=== PATIENT | female | born 1945 | race Caucasian/White ===

== ENCOUNTER → 2016-10-20 | Outpatient (CLI) | payer BC ==
[~2016-10-20] MED LIST: ATEN-60 PO; ATEN50TA PO; METF-312 PO; NAPR-607 PO; TRIA75TA66 PO; WARF5TAB71 PO
[2016-10-20 12:09] LABS: Basophils # (auto) 0 uL; DEFINITIVE VIEW TRANSMISSION; Eosinophils # (auto) 0.1 uL; Eosinophils % (auto) 0.6 % (0.0-7.0); Hematocrit 54.3 % (36.0-46.0); Hemoglobin 17.4 g/dL (12.2-16.2); Lymphocytes # (auto) 1.3 uL; Lymphocytes % (auto) 11.7 % (10.0-50.0); Mean Corpuscular Hemoglobin 28.1 pg (28.0-32.0); Mean Corpuscular Volume 87.6 fL (80.0-100.0); Mean Platelet Volume 8.8 fL (7.4-10.4); Monocytes # (auto) 0.3 uL; Monocytes % (auto) 2.6 % (0.0-12.0); Neutrophils # (auto) 9.8 uL; Neutrophils % (auto) 85.1 % (37.0-80.0); Platelet Count (auto) 259 10^3/uL (140-450); Red Cell Distribution Width 18.2 % (11.6-16.0); White Blood Cell 11.5 10^3/uL (4.4-10.8)
[2016-10-20 12:18] LABS: Urine Blood Negative /uL (Negative); Urine Color Yellow (Yellow); Urine Glucose Normal (Normal); Urine Hyaline Cast MANY /lpf (0 - 2); Urine Ketone Negative (Negative); Urine Mucus FEW (None Seen); Urine Nitrite Negative (Negative); Urine RBC 2 /hpf (0 - 4); Urine Squamous Epithelial Cell MOD /hpf (<5)
[2016-10-20 12:25] LABS: Albumin 3.3 g/dL (3.4-5.0); Bilirubin, Total 0.4 mg/dL (0.2-1.0); Calcium 9.7 mg/dL (8.5-10.1); Potassium 3.6 mmol/L (3.5-5.1); Total Protein 7.6 g/dL (6.4-8.2)
[2016-10-20 14:04] LABS: Urine Bilirubin Negative (Negative)
== END | disposition home or self-care (01) ==
LOC: LAB 11:26
PROVIDERS: ATTEND Internal Medicine
DX: I10 Essential (primary) hypertension (principal); E11.9 Type 2 diabetes mellitus without complications
CPT/HCPCS: 36415; 80053; 80061; 80162; 81001; 82043; 82607; 83036; 84439; 84443; 85025; 85652

== ENCOUNTER → 2017-04-30 | Outpatient (CLI) | payer BC ==
[~2017-04-30] MED LIST changes: -ATEN50TA PO; +FURO20TA PO; -METF-312 PO; +METF-370 PO; +POTA10TA34 PO
[2017-04-30 13:15] LABS: Allen Test Yes; Base Excess 3.3 mmol/L (-2.0-2.0); Blood 02Sat 90.3 % (96-100); Blood COHb 0.8 % (0.5-1.5); Blood MetHb 0.3 % (0.0-1.5); HCO3 28.2 mmol/L (22-26.0); HHb 9.6 % (0.0-5.0); MODE RA; O2Hb 89.3 % (94.0-97.0); PCO2 43.4 mmHg (35.0-45.0); PCO2(T) 43.4 mmHg (35.0-45.0); PO2 61.5 mmHg (80.0-100.0); PO2(T) 61.5 mmHg (80.0-100.0); Sample Type Arterial
== END | disposition home or self-care (01) ==
LOC: RT 12:52
PROVIDERS: ATTEND Internal Medicine
DX: J44.9 Chronic obstructive pulmonary disease, unspecified (principal); I48.2 Chronic atrial fibrillation; E11.9 Type 2 diabetes mellitus without complications; I50.23 Acute on chronic systolic (congestive) heart failure; Z79.01 Long term (current) use of anticoagulants
CPT/HCPCS: 36600; 82805

== ENCOUNTER → 2017-09-24 | Outpatient (CLI) | payer BC ==
[~2017-09-24] MED LIST changes: -NAPR-607 PO; +NAPR500T31 PO
[2017-09-24 14:25] LABS: BUN/Creatinine Ratio 38.5; Calcium 9.3 mg/dL (8.5-10.1); Potassium 3.4 mmol/L (3.5-5.1)
== END | disposition home or self-care (01) ==
LOC: LAB 13:17
PROVIDERS: ATTEND Internal Medicine Cardiovascular Disease
DX: I50.9 Heart failure, unspecified (principal)
CPT/HCPCS: 36415; 80048; 86225; 86235

== ENCOUNTER 2018-02-10 18:14 | Inpatient (IN) | payer BC ==
[~2018-02-10] VITALS: Ht 175.3 cm; Wt 138.6 kg
[2018-02-10 19:40] LABS: Urine Bacteria MANY /hpf (None Seen); Urine Blood Negative /uL (Negative); Urine Hyaline Cast FEW /lpf (0 - 2); Urine Mucus FEW (None Seen); Urine Specific Gravity 1.016 (1.001-1.035); Urine WBC 77 /hpf (0 - 5)
[2018-02-10 20:18] LABS: Basophils # (auto) 0.1 uL; Basophils % (auto) 0.7 % (0.0-2.0); Eosinophils # (auto) 0.2 uL; Eosinophils % (auto) 1.9 % (0.0-7.0); Hematocrit 45.7 % (36.0-46.0); Hemoglobin 15.5 g/dL (12.2-16.2); Lymphocytes # (auto) 0.9 uL; Lymphocytes % (auto) 9.4 % (10.0-50.0); Mean Corpuscular Hemoglobin 30.7 pg (28.0-32.0); Mean Corpuscular Volume 90.3 fL (80.0-100.0); Monocytes # (auto) 0.6 uL; Monocytes % (auto) 5.8 % (0.0-12.0); Neutrophils # (auto) 7.8 uL; Neutrophils % (auto) 82.2 % (37.0-80.0); Nucleated Red Blood Cells % 0.5 %; Platelet Count (auto) 244 10^3/uL (140-450); Red Blood Cells 5.06 10^6/uL (4.0-5.20); Red Cell Distribution Width 18.8 % (11.8-14.3); White Blood Cell 9.5 10^3/uL (4.4-10.8)
[2018-02-10 20:27] LABS: Alanine Aminotransferase 18 U/L (13-56); Albumin 2.8 g/dL (3.4-5.0); Anion Gap 11 (5-15); Aspartate Aminotransferase 13 U/L (15-37); BUN/Creatinine Ratio 29.1; Blood Urea Nitrogen 41 mg/dL (7-18); Carbon Dioxide 32 mmol/L (21-32); Chloride 101 mmol/L (98-107); GFR African American 47 mL/min; GFR Non-African American 39 mL/min; Glucose 95 mg/dL (74-106); Potassium 3.1 mmol/L (3.5-5.1); Sodium 144 mmol/L (136-145)
[2018-02-10 20:31] LABS: Alkaline Phosphatase 110 U/L (45-117); Bilirubin, Total 0.6 mg/dL (0.2-1.0); Total Protein 7.2 g/dL (6.4-8.2)
[2018-02-10 22:22] LABS: INR 2.05 (0.9-1.15); Partial Thromboplastin Time 42.2 sec (23.78-33.04); Prothrombin Time 21.1 sec (9.27-12.13)
[2018-02-10] MEDS ORDERED: FUROSEMIDE 20 MG/2 ML VIAL IV ONE (22:45)
[2018-02-10] MEDS ORDERED: POTASSIUM CHL 20 Meq TABLET PO ONE (22:45)
[2018-02-10] MEDS ORDERED: FUROSEMIDE 40 MG/4 ML VIAL ONE (23:07)
[2018-02-11] MEDS ORDERED: ONDANSETRON HCL 4 MG/2 ML VIAL IV PRN (00:15)
[2018-02-11] MEDS ORDERED: NITROGLYCERIN 0.4 MG SL TAB SL PRN (00:15)
[2018-02-11] MEDS ORDERED: MORPHINE SULF(PF) 0.5MG/ML 10ML VIAL IV PRN (00:15)
[2018-02-11] MEDS ORDERED: ACETAMINOPHEN 500 MG TAB PO PRN (00:15)
[2018-02-11] MEDS ORDERED: ALBUTEROL SULF 2.5 MG/0.5ML(0.5%) NEB SOLN NEB PRN (00:15)
[2018-02-11] MEDS ORDERED: FUROSEMIDE 40 MG/4 ML VIAL IV ONE (00:15)
[2018-02-11 01:13] VITALS: BP 140/78
[2018-02-11] MEDS ORDERED: MORPHINE SULF INJ 2 MG/ML SYRINGE 1ML IV PRN (01:15)
[2018-02-11] MEDS: cefTRIAXone 1GM/10ml IVPUSH 10 ML IV SCH (02:58)
[2018-02-11] MEDS: AZITHROMYCIN 500MG/ 250ML 250 ML IV SCH (03:26)
[2018-02-11 04:04] VITALS: BP 101/59
[2018-02-11] MEDS ORDERED: METO5TAB56 PO (05:29)
[2018-02-11] MEDS ORDERED: GABA250S2 PO (05:35)
[2018-02-11] MEDS ORDERED: GABA300C10 PO (05:35)
[2018-02-11] MEDS: GABAPENTIN 300 MG CAP PO SCH ×3 (06:33→22:27)
[2018-02-11 06:47] LABS: Basophils # (auto) 0.1 uL; Basophils % (auto) 0.8 % (0.0-2.0); Eosinophils # (auto) 0.1 uL; Eosinophils % (auto) 1.4 % (0.0-7.0); Hematocrit 46.8 % (36.0-46.0); Hemoglobin 15.3 g/dL (12.2-16.2); Lymphocytes # (auto) 0.8 uL; Lymphocytes % (auto) 7.5 % (10.0-50.0); Mean Corpuscular Hgb Conc. 32.7 g/dL (32.0-36.0); Mean Corpuscular Volume 91.9 fL (80.0-100.0); Monocytes # (auto) 0.7 uL; Neutrophils # (auto) 8.7 uL; Neutrophils % (auto) 83.3 % (37.0-80.0); Nucleated Red Blood Cells % 0.4 %; Platelet Count (auto) 281 10^3/uL (140-450); Red Blood Cells 5.09 10^6/uL (4.0-5.20); Red Cell Distribution Width 19.1 % (11.8-14.3); White Blood Cell 10.4 10^3/uL (4.4-10.8)
[2018-02-11 06:48] LABS: Calcium 9.8 mg/dL (8.5-10.1); Potassium 3.1 mmol/L (3.5-5.1)
[2018-02-11] MEDS: metFORMIN HYDROCHLORIDE 500 MG TAB PO SCH ×2 (07:22→17:27)
[2018-02-11 09:00] VITALS: BP 122/58
[2018-02-11] MEDS: FUROSEMIDE 40 MG/4 ML VIAL IV SCH (10:32)
[2018-02-11] MEDS ORDERED: ENOXAPARIN SOD 40 MG/0.4 ML SYRINGE SC ONE (12:15)
[2018-02-11 13:00] VITALS: BP 128/72
[2018-02-11] MEDS ORDERED: METOLAZONE 5 MG TAB PO ONE (13:30)
[2018-02-11] MEDS ORDERED: POTASSIUM CHL 20 Meq TABLET PO ONE (13:30)
[2018-02-11 17:00] VITALS: BP 104/48
[2018-02-11] MEDS ORDERED: WARFARIN SODIUM 5 MG TAB PO ONE (17:00)
[2018-02-11 22:00] VITALS: BP 108/40
[2018-02-11] MEDS: ENOXAPARIN SOD 40 MG/0.4 ML SYRINGE SC SCH (22:28)
[2018-02-12] MEDS: cefTRIAXone 1GM/10ml IVPUSH 10 ML IV SCH (02:24)
[2018-02-12] MEDS: AZITHROMYCIN 500MG/ 250ML 250 ML IV SCH (02:37)
[2018-02-12] MEDS: HYDROcodone-ACET 5/325MG TAB PO PRN ×4 (04:09→21:46)
[2018-02-12 05:00] VITALS: BP 110/57
[2018-02-12] MEDS: metFORMIN HYDROCHLORIDE 500 MG TAB PO SCH ×2 (06:51→18:00)
[2018-02-12] MEDS: GABAPENTIN 300 MG CAP PO SCH ×3 (06:51→21:44)
[2018-02-12 06:53] LABS: Basophils # (auto) 0.1 uL; Basophils % (auto) 0.7 % (0.0-2.0); Eosinophils # (auto) 0.2 uL; Eosinophils % (auto) 1.8 % (0.0-7.0); Hematocrit 43.7 % (36.0-46.0); Hemoglobin 14.5 g/dL (12.2-16.2); Lymphocytes # (auto) 0.7 uL; Lymphocytes % (auto) 7.9 % (10.0-50.0); Mean Corpuscular Hemoglobin 30.4 pg (28.0-32.0); Mean Corpuscular Hgb Conc. 33.1 g/dL (32.0-36.0); Mean Corpuscular Volume 91.9 fL (80.0-100.0); Monocytes # (auto) 0.5 uL; Monocytes % (auto) 6.2 % (0.0-12.0); Neutrophils # (auto) 7.1 uL; Neutrophils % (auto) 83.4 % (37.0-80.0); Nucleated Red Blood Cells % 0.4 %; Platelet Count (auto) 241 10^3/uL (140-450); Red Blood Cells 4.76 10^6/uL (4.0-5.20); Red Cell Distribution Width 19.1 % (11.8-14.3); White Blood Cell 8.5 10^3/uL (4.4-10.8)
[2018-02-12 06:59] LABS: INR 1.6 (0.9-1.15); Prothrombin Time 16.7 sec (9.27-12.13)
[2018-02-12 07:09] LABS: BUN/Creatinine Ratio 32.7; Calcium 9.6 mg/dL (8.5-10.1); Potassium 3.3 mmol/L (3.5-5.1)
[2018-02-12 08:00] VITALS: BP 121/52
[2018-02-12] MEDS ORDERED: POTASSIUM CHL 20 Meq TABLET PO ONE (09:00)
[2018-02-12] MEDS ORDERED: POTASSIUM CHL 20 Meq TABLET PO SCH (10:00)
[2018-02-12] MEDS: ENOXAPARIN SOD 40 MG/0.4 ML SYRINGE SC SCH ×2 (10:17→21:45)
[2018-02-12] MEDS: METOLAZONE 5 MG TAB PO SCH (10:17)
[2018-02-12] MEDS: FUROSEMIDE 40 MG/4 ML VIAL IV SCH (10:18)
[2018-02-12] MEDS: POTASSIUM CHL 20 Meq TABLET PO SCH ×2 (10:18→21:44)
[2018-02-12 10:33] VITALS: BP 121/52
[2018-02-12] MEDS ORDERED: METO5TAB56 PO (12:34)
[2018-02-12] MEDS ORDERED: POTA10TA51 PO (12:34)
[2018-02-12] MEDS ORDERED: FURO40TA4 PO (12:34)
[2018-02-12 13:34] VITALS: BP 121/51
[2018-02-12] MEDS ORDERED: WARFARIN SODIUM 2.5 MG TAB PO ONE (17:00)
[2018-02-12 17:42] VITALS: BP 146/73
[2018-02-12 22:00] VITALS: BP 123/56
[2018-02-13] MEDS: HYDROcodone-ACET 5/325MG TAB PO PRN ×5 (04:59→22:40)
[2018-02-13] MEDS: GABAPENTIN 300 MG CAP PO SCH ×3 (04:59→22:28)
[2018-02-13 05:00] VITALS: BP 145/79
[2018-02-13 06:18] LABS: INR 1.86 (0.9-1.15); Partial Thromboplastin Time 43.6 sec (23.78-33.04); Prothrombin Time 19.2 sec (9.27-12.13)
[2018-02-13 06:24] LABS: BUN/Creatinine Ratio 29.7; Calcium 9.1 mg/dL (8.5-10.1); Potassium 3.5 mmol/L (3.5-5.1)
[2018-02-13] MEDS: metFORMIN HYDROCHLORIDE 500 MG TAB PO SCH ×2 (06:37→17:43)
[2018-02-13 09:35] VITALS: BP 122/65
[2018-02-13] MEDS: FUROSEMIDE 40 MG/4 ML VIAL IV SCH (09:58)
[2018-02-13] MEDS: cefTRIAXone 1GM/10ml IVPUSH 10 ML IV SCH (09:58)
[2018-02-13] MEDS: POTASSIUM CHL 20 Meq TABLET PO SCH ×2 (09:59→22:27)
[2018-02-13] MEDS: ENOXAPARIN SOD 40 MG/0.4 ML SYRINGE SC SCH ×2 (09:59→22:38)
[2018-02-13] MEDS: METOLAZONE 5 MG TAB PO SCH (09:59)
[2018-02-13] MEDS ORDERED: METOPROLOL TARTRATE 25 MG TAB PO ONE (12:45)
[2018-02-13] MEDS ORDERED: METOPROLOL TARTRATE 25 MG TAB ONE (12:48)
[2018-02-13 13:27] VITALS: BP 120/58
[2018-02-13] MEDS ORDERED: WARFARIN SODIUM 5 MG TAB PO ONE (17:00)
[2018-02-13 17:37] VITALS: BP 130/77
[2018-02-13 21:40] VITALS: BP 123/61
[2018-02-13] MEDS: METOPROLOL TARTRATE 25 MG TAB PO SCH (22:28)
[2018-02-14 05:00] VITALS: BP 119/63
[2018-02-14 06:20] LABS: Basophils # (auto) 0.1 uL; Basophils % (auto) 0.5 % (0.0-2.0); Eosinophils # (auto) 0 uL; Eosinophils % (auto) 0.3 % (0.0-7.0); Hemoglobin 14.7 g/dL (12.2-16.2); Lymphocytes # (auto) 0.6 uL; Lymphocytes % (auto) 5.6 % (10.0-50.0); Mean Corpuscular Hemoglobin 29.7 pg (28.0-32.0); Mean Corpuscular Hgb Conc. 32.7 g/dL (32.0-36.0); Mean Corpuscular Volume 90.8 fL (80.0-100.0); Monocytes % (auto) 9.1 % (0.0-12.0); Neutrophils # (auto) 8.8 uL; Neutrophils % (auto) 84.5 % (37.0-80.0); Nucleated Red Blood Cells % 0.1 %; Platelet Count (auto) 211 10^3/uL (140-450); Red Blood Cells 4.95 10^6/uL (4.0-5.20); Red Cell Distribution Width 18.4 % (11.8-14.3); White Blood Cell 10.4 10^3/uL (4.4-10.8)
[2018-02-14 06:29] LABS: INR 2.36 (0.9-1.15); Partial Thromboplastin Time 51.1 sec (23.78-33.04); Prothrombin Time 24.1 sec (9.27-12.13)
[2018-02-14 06:30] LABS: Albumin 2.5 g/dL (3.4-5.0); BUN/Creatinine Ratio 26.2; Bilirubin, Total 0.8 mg/dL (0.2-1.0); Calcium 9.3 mg/dL (8.5-10.1); Potassium 3.5 mmol/L (3.5-5.1); Total Protein 6.9 g/dL (6.4-8.2)
[2018-02-14] MEDS: GABAPENTIN 300 MG CAP PO SCH ×3 (06:59→22:36)
[2018-02-14] MEDS: metFORMIN HYDROCHLORIDE 500 MG TAB PO SCH ×2 (06:59→17:36)
[2018-02-14] MEDS: HYDROcodone-ACET 5/325MG TAB PO PRN ×3 (07:00→18:27)
[2018-02-14 09:00] VITALS: BP 117/68
[2018-02-14] MEDS: POTASSIUM CHL 20 Meq TABLET PO SCH ×2 (11:18→22:36)
[2018-02-14] MEDS: cefTRIAXone 1GM/10ml IVPUSH 10 ML IV SCH (11:18)
[2018-02-14] MEDS: ENOXAPARIN SOD 40 MG/0.4 ML SYRINGE SC SCH ×2 (11:19→22:37)
[2018-02-14] MEDS: METOPROLOL TARTRATE 25 MG TAB PO SCH ×2 (11:19→22:36)
[2018-02-14] MEDS: METOLAZONE 5 MG TAB PO SCH (11:19)
[2018-02-14] MEDS: FUROSEMIDE 40 MG/4 ML VIAL IV SCH (11:20)
[2018-02-14 12:40] VITALS: BP 117/52
[2018-02-14 15:12] VITALS: BP 117/52
[2018-02-14 16:38] VITALS: BP 107/70
[2018-02-14] MEDS ORDERED: WARFARIN SODIUM 2.5 MG TAB PO ONE (17:00)
[2018-02-14 22:00] VITALS: BP 127/62
[2018-02-14] MEDS: NAPROXEN 500 MG TAB PO SCH (22:37)
[2018-02-15] MEDS: HYDROcodone-ACET 5/325MG TAB PO PRN (03:27)
[2018-02-15 05:00] VITALS: BP 111/35
[2018-02-15] MEDS: GABAPENTIN 300 MG CAP PO SCH ×3 (06:26→21:50)
[2018-02-15] MEDS: metFORMIN HYDROCHLORIDE 500 MG TAB PO SCH ×2 (06:32→18:11)
[2018-02-15 06:48] LABS: Basophils # (auto) 0.1 uL; Basophils % (auto) 0.6 % (0.0-2.0); Eosinophils # (auto) 0 uL; Eosinophils % (auto) 0.1 % (0.0-7.0); Hemoglobin 14.5 g/dL (12.2-16.2); Lymphocytes # (auto) 0.6 uL; Lymphocytes % (auto) 4.5 % (10.0-50.0); Mean Corpuscular Hemoglobin 29.8 pg (28.0-32.0); Mean Corpuscular Hgb Conc. 32.9 g/dL (32.0-36.0); Mean Corpuscular Volume 90.6 fL (80.0-100.0); Monocytes # (auto) 1.2 uL; Monocytes % (auto) 9.8 % (0.0-12.0); Neutrophils # (auto) 10.6 uL; Nucleated Red Blood Cells % 0.1 %; Platelet Count (auto) 215 10^3/uL (140-450); Red Blood Cells 4.86 10^6/uL (4.0-5.20); Red Cell Distribution Width 18.5 % (11.8-14.3); White Blood Cell 12.5 10^3/uL (4.4-10.8)
[2018-02-15 07:00] LABS: Albumin 2.3 g/dL (3.4-5.0); Calcium 9.1 mg/dL (8.5-10.1); Potassium 3.4 mmol/L (3.5-5.1)
[2018-02-15 07:02] LABS: BUN/Creatinine Ratio 27.1; INR 2.4 (0.9-1.15); Prothrombin Time 24.4 sec (9.27-12.13)
[2018-02-15 07:05] LABS: Bilirubin, Total 0.8 mg/dL (0.2-1.0)
[2018-02-15 09:00] VITALS: BP 96/51
[2018-02-15] MEDS ORDERED: ASPirin-EC 81 mg tab PO SCH (10:00)
[2018-02-15] MEDS: METOPROLOL TARTRATE 25 MG TAB PO SCH ×2 (10:00→21:51)
[2018-02-15] MEDS: POTASSIUM CHL 20 Meq TABLET PO SCH ×2 (10:02→21:51)
[2018-02-15] MEDS: NAPROXEN 500 MG TAB PO SCH ×2 (10:03→21:51)
[2018-02-15] MEDS: METOLAZONE 5 MG TAB PO SCH (10:04)
[2018-02-15] MEDS: cefTRIAXone 1GM/10ml IVPUSH 10 ML IV SCH (10:04)
[2018-02-15] MEDS: FUROSEMIDE 40 MG/4 ML VIAL IV SCH ×2 (10:04→18:12)
[2018-02-15] MEDS: ENOXAPARIN SOD 40 MG/0.4 ML SYRINGE SC SCH ×2 (10:05→21:51)
[2018-02-15] MEDS ORDERED: POTASSIUM CHL 10 Meq TABLET PO ONE (10:15)
[2018-02-15 13:00] VITALS: BP 105/49
[2018-02-15 17:00] VITALS: BP 114/59
[2018-02-15] MEDS ORDERED: WARFARIN SODIUM 2.5 MG TAB PO ONE (17:00)
[2018-02-15] MEDS: PRO-STAT 64 30ML PO SCH (18:11)
[2018-02-15] MEDS: ATORVASTATIN 20 MG TAB PO SCH (21:50)
[2018-02-15 22:00] VITALS: BP 107/67
[2018-02-16] MEDS: HYDROcodone-ACET 5/325MG TAB PO PRN ×2 (04:44→16:21)
[2018-02-16 05:00] VITALS: BP 112/59
[2018-02-16] MEDS: GABAPENTIN 300 MG CAP PO SCH ×3 (06:07→22:04)
[2018-02-16] MEDS: metFORMIN HYDROCHLORIDE 500 MG TAB PO SCH ×2 (06:07→18:38)
[2018-02-16] MEDS: FUROSEMIDE 40 MG/4 ML VIAL IV SCH ×2 (06:11→18:00)
[2018-02-16 07:16] LABS: Basophils # (auto) 0 uL; Basophils % (auto) 0.4 % (0.0-2.0); Eosinophils # (auto) 0.1 uL; Eosinophils % (auto) 0.8 % (0.0-7.0); Hematocrit 45.1 % (36.0-46.0); Hemoglobin 14.8 g/dL (12.2-16.2); Lymphocytes # (auto) 0.4 uL; Lymphocytes % (auto) 4.3 % (10.0-50.0); Mean Corpuscular Hemoglobin 29.6 pg (28.0-32.0); Mean Corpuscular Hgb Conc. 32.7 g/dL (32.0-36.0); Mean Corpuscular Volume 90.6 fL (80.0-100.0); Monocytes # (auto) 0.7 uL; Neutrophils # (auto) 9.1 uL; Neutrophils % (auto) 87.5 % (37.0-80.0); Nucleated Red Blood Cells % 0.1 %; Platelet Count (auto) 217 10^3/uL (140-450); Red Blood Cells 4.98 10^6/uL (4.0-5.20); White Blood Cell 10.4 10^3/uL (4.4-10.8)
[2018-02-16 07:30] LABS: INR 2.31 (0.9-1.15); Partial Thromboplastin Time 57.3 sec (23.78-33.04); Prothrombin Time 23.6 sec (9.27-12.13)
[2018-02-16 07:50] LABS: BUN/Creatinine Ratio 33.7; Calcium 9.5 mg/dL (8.5-10.1); Potassium 3.3 mmol/L (3.5-5.1)
[2018-02-16 09:00] VITALS: BP 101/42
[2018-02-16] MEDS: POTASSIUM CHL 20 Meq TABLET PO SCH ×3 (10:33→22:05)
[2018-02-16] MEDS: PRO-STAT 64 30ML PO SCH ×3 (10:33→18:38)
[2018-02-16] MEDS: cefTRIAXone 1GM/10ml IVPUSH 10 ML IV SCH (10:33)
[2018-02-16] MEDS: NAPROXEN 500 MG TAB PO SCH ×2 (10:33→22:05)
[2018-02-16] MEDS: METOLAZONE 5 MG TAB PO SCH (10:34)
[2018-02-16] MEDS: METOPROLOL TARTRATE 25 MG TAB PO SCH ×2 (10:34→22:06)
[2018-02-16] MEDS ORDERED: NYSTATIN TOPICAL POWDER 15GM TOP ONE (11:00)
[2018-02-16 17:00] VITALS: BP 86/47
[2018-02-16] MEDS ORDERED: WARFARIN SODIUM 1 MG TAB PO ONE (17:00)
[2018-02-16 21:35] VITALS: BP 112/70
[2018-02-16] MEDS: ATORVASTATIN 20 MG TAB PO SCH (22:05)
[2018-02-16] MEDS: ASCORBIC ACID 500 MG TAB PO SCH (22:05)
[2018-02-16] MEDS: NYSTATIN TOPICAL POWDER 15GM TOP SCH (22:06)
[2018-02-17] MEDS: HYDROcodone-ACET 5/325MG TAB PO PRN (04:54)
[2018-02-17 05:00] VITALS: BP 105/59
[2018-02-17] MEDS: POTASSIUM CHL 20 Meq TABLET PO SCH ×2 (06:21→14:00)
[2018-02-17] MEDS: GABAPENTIN 300 MG CAP PO SCH ×2 (06:22→14:00)
[2018-02-17] MEDS: metFORMIN HYDROCHLORIDE 500 MG TAB PO SCH (06:22)
[2018-02-17] MEDS: FUROSEMIDE 40 MG/4 ML VIAL IV SCH (06:26)
[2018-02-17 07:19] LABS: Basophils # (auto) 0 uL; Basophils % (auto) 0.4 % (0.0-2.0); Eosinophils # (auto) 0.2 uL; Hematocrit 44.5 % (36.0-46.0); Hemoglobin 14.8 g/dL (12.2-16.2); INR 1.86 (0.9-1.15); Lymphocytes # (auto) 0.5 uL; Lymphocytes % (auto) 5.9 % (10.0-50.0); Mean Corpuscular Hemoglobin 30.1 pg (28.0-32.0); Mean Corpuscular Hgb Conc. 33.2 g/dL (32.0-36.0); Mean Corpuscular Volume 90.5 fL (80.0-100.0); Monocytes # (auto) 0.7 uL; Monocytes % (auto) 7.6 % (0.0-12.0); Neutrophils # (auto) 7.2 uL; Neutrophils % (auto) 84.1 % (37.0-80.0); Nucleated Red Blood Cells % 0.3 %; Platelet Count (auto) 220 10^3/uL (140-450); Prothrombin Time 19.2 sec (9.27-12.13); Red Blood Cells 4.91 10^6/uL (4.0-5.20); White Blood Cell 8.6 10^3/uL (4.4-10.8)
[2018-02-17 07:27] LABS: BUN/Creatinine Ratio 45.5; Calcium 9.2 mg/dL (8.5-10.1); Potassium 3.6 mmol/L (3.5-5.1)
[2018-02-17 07:41] VITALS: BP 105/59
[2018-02-17] MEDS: PRO-STAT 64 30ML PO SCH ×2 (09:25→12:00)
[2018-02-17] MEDS: cefTRIAXone 1GM/10ml IVPUSH 10 ML IV SCH (09:25)
[2018-02-17] MEDS: METOPROLOL TARTRATE 25 MG TAB PO SCH (09:27)
[2018-02-17] MEDS: NYSTATIN TOPICAL POWDER 15GM TOP SCH (09:28)
[2018-02-17] MEDS: NAPROXEN 500 MG TAB PO SCH (09:28)
[2018-02-17] MEDS: ASCORBIC ACID 500 MG TAB PO SCH (09:28)
[2018-02-17] MEDS: METOLAZONE 5 MG TAB PO SCH (09:28)
[2018-02-17] MEDS ORDERED: MULTIPLE VITAMINS W/ MINERALS TAB PO SCH (10:00)
[2018-02-17 10:13] VITALS: BP 138/72
[2018-02-17] MEDS ORDERED: POTA20TA53 PO (10:49)
[2018-02-17] MEDS ORDERED: NYS15PW TOP (10:51)
[2018-02-17] MEDS ORDERED: ATOR20TA50 PO (10:51)
[2018-02-17] MEDS ORDERED: CEPH-37 PO (10:55)
[2018-02-17 11:00] VITALS: BP 138/72
[2018-02-17 12:23] VITALS: BP 105/71
[2018-02-17] MEDS ORDERED: WARFARIN SODIUM 5 MG TAB PO ONE (17:00)
== END 2018-02-17 15:40 | disposition hospice, home (50) | DRG 291 ==
LOC: ER 18:14 → TELE 18:15 → TELE-EAST 02-11 01:35
PROVIDERS: ADMIT Nurse Practitioner Family; ATTEND Internal Medicine
DX: I11.0 Hypertensive heart disease with heart failure (principal); J96.01 Acute respiratory failure with hypoxia; N17.0 Acute kidney failure with tubular necrosis; J96.02 Acute respiratory failure with hypercapnia; J18.9 Pneumonia, unspecified organism; D68.9 Coagulation defect, unspecified; N39.0 Urinary tract infection, site not specified; Z68.42 Body mass index [BMI] 45.0-49.9, adult; E87.2 Acidosis; I50.33 Acute on chronic diastolic (congestive) heart failure; I48.2 Chronic atrial fibrillation; E11.40 Type 2 diabetes mellitus with diabetic neuropathy, unspecified; E11.51 Type 2 diabetes mellitus with diabetic peripheral angiopathy without gangrene; E11.65 Type 2 diabetes mellitus with hyperglycemia; E66.01 Morbid (severe) obesity due to excess calories; E87.6 Hypokalemia; F17.210 Nicotine dependence, cigarettes, uncomplicated; G47.30 Sleep apnea, unspecified; G89.29 Other chronic pain; I48.0 Paroxysmal atrial fibrillation; I87.2 Venous insufficiency (chronic) (peripheral); J44.9 Chronic obstructive pulmonary disease, unspecified; K43.9 Ventral hernia without obstruction or gangrene; I27.81 Cor pulmonale (chronic); N28.9 Disorder of kidney and ureter, unspecified; I08.0 Rheumatic disorders of both mitral and aortic valves; I70.0 Atherosclerosis of aorta; Z53.20 Procedure and treatment not carried out because of patient's decision for unspecified reasons; Z79.4 Long term (current) use of insulin; Z95.0 Presence of cardiac pacemaker; Z79.01 Long term (current) use of anticoagulants; Z90.49 Acquired absence of other specified parts of digestive tract; Z90.89 Acquired absence of other organs; Z98.51 Tubal ligation status; Z82.0 Family history of epilepsy and other diseases of the nervous system; Z80.42 Family history of malignant neoplasm of prostate
CPT/HCPCS: 36415; 36600; 71045; 80048; 80053; 81001; 82805; 82962; 83036; 83735; 83880; 84484; 85025; 85379; 85610; 85730; 87070; 87081; 87086; 87205; 93005; 93306; 93926; 93970; 94761; 96365; 96375; 97110; 97530

== ENCOUNTER → 2018-08-09 | Outpatient (CLI) | payer BC ==
[~2018-08-09] MED LIST changes: +ATOR20TA50 PO; +CEPH-37 PO; -FURO20TA PO; +GABA300C10 PO; +METO5TAB56 PO; +NYS15PW TOP; -POTA10TA34 PO; +POTA20TA53 PO; -TRIA75TA66 PO
[2018-08-09 10:21] LABS: Basophils # (auto) 0.1 uL; Basophils % (auto) 0.6 % (0.0-2.0); Eosinophils # (auto) 0.2 uL; Eosinophils % (auto) 2.1 % (0.0-7.0); Hematocrit 46.4 % (36.0-46.0); Hemoglobin 14.9 g/dL (12.2-16.2); Lymphocytes # (auto) 0.6 uL; Lymphocytes % (auto) 6.9 % (10.0-50.0); Mean Corpuscular Hemoglobin 28.5 pg (28.0-32.0); Mean Corpuscular Hgb Conc. 32.1 g/dL (32.0-36.0); Mean Corpuscular Volume 88.7 fL (80.0-100.0); Monocytes # (auto) 0.5 uL; Monocytes % (auto) 5.8 % (0.0-12.0); Neutrophils # (auto) 7.5 uL; Neutrophils % (auto) 84.6 % (37.0-80.0); Nucleated Red Blood Cells % 0.1 %; Platelet Count (auto) 267 10^3/uL (140-450); Red Blood Cells 5.23 10^6/uL (4.0-5.20); Red Cell Distribution Width 17.2 % (11.8-14.3); White Blood Cell 8.8 10^3/uL (4.4-10.8)
[2018-08-09 10:57] LABS: Albumin 3.2 g/dL (3.4-5.0); Calcium 9.9 mg/dL (8.5-10.1); Potassium 3.7 mmol/L (3.5-5.1)
[2018-08-09 11:04] LABS: BUN/Creatinine Ratio 21.2; Bilirubin, Total 0.6 mg/dL (0.2-1.0); Total Protein 7.4 g/dL (6.4-8.2)
== END | disposition home or self-care (01) ==
LOC: LAB 09:49
PROVIDERS: ATTEND Internal Medicine
DX: E11.9 Type 2 diabetes mellitus without complications (principal); I11.0 Hypertensive heart disease with heart failure; I50.9 Heart failure, unspecified
CPT/HCPCS: 36415; 80053; 80061; 82607; 83036; 84439; 84443; 85025; 85652

== ENCOUNTER → 2018-12-20 | Outpatient (CLI) | payer BC ==
[2018-12-20 12:48] LABS: Basophils # (auto) 0.1 uL; Basophils % (auto) 0.6 % (0.0-2.0); Eosinophils # (auto) 0.3 uL; Hematocrit 47.2 % (36.0-46.0); Hemoglobin 15.3 g/dL (12.2-16.2); Lymphocytes # (auto) 0.6 uL; Lymphocytes % (auto) 7.8 % (10.0-50.0); Mean Corpuscular Hemoglobin 27.5 pg (28.0-32.0); Mean Corpuscular Hgb Conc. 32.3 g/dL (32.0-36.0); Monocytes # (auto) 0.3 uL; Monocytes % (auto) 4.2 % (0.0-12.0); Neutrophils % (auto) 84.4 % (37.0-80.0); Platelet Count (auto) 239 10^3/uL (140-450); Red Blood Cells 5.55 10^6/uL (4.0-5.20); Red Cell Distribution Width 17.5 % (11.8-14.3); White Blood Cell 8.3 10^3/uL (4.4-10.8)
[2018-12-20 13:11] LABS: Potassium 3.7 mmol/L (3.5-5.1)
[2018-12-20 13:25] LABS: Albumin 3.5 g/dL (3.4-5.0); BUN/Creatinine Ratio 23.7; Bilirubin, Total 0.4 mg/dL (0.2-1.0); Calcium 9.8 mg/dL (8.5-10.1); Total Protein 7.2 g/dL (6.4-8.2)
== END | disposition home or self-care (01) ==
LOC: LAB 11:44
PROVIDERS: ATTEND Internal Medicine
DX: E11.22 Type 2 diabetes mellitus with diabetic chronic kidney disease (principal); I12.9 Hypertensive chronic kidney disease with stage 1 through stage 4 chronic kidney disease, or unspecified chronic kidney disease; N18.3 Chronic kidney disease, stage 3 (moderate)
CPT/HCPCS: 36415; 80053; 83036; 83540; 83721; 85025

== ENCOUNTER → 2021-04-01 | Outpatient (CLI) | payer BC ==
[~2021-04-01] MED LIST changes: +METO5TAB5 PO; -METO5TAB56 PO; +POTA-220 PO; -POTA20TA53 PO
[2021-04-01 14:32] LABS: Basophils # (auto) 0 10 ^3/uL (0-0.2); Basophils % (auto) 0.4 % (0.0-2.0); Eosinophils # (auto) 0.1 10 ^3/uL (0-0.8); Lymphocytes # (auto) 0.6 10 ^3/uL (0.4-5.4); Monocytes # (auto) 0.4 10 ^3/uL (0-1.3); Monocytes % (auto) 4.2 % (0.0-12.0); Neutrophils # (auto) 8.7 10 ^3/uL (1.6-8.6); Nucleated Red Blood Cells % 0.1 %
[2021-04-01 14:34] LABS: Hematocrit 46.7 % (36.0-46.0); Hemoglobin 15.2 g/dL (12.2-16.2); Lymphocytes % (auto) 6.5 % (10.0-50.0); Mean Corpuscular Hgb Conc. 32.7 g/dL (32.0-36.0); Mean Corpuscular Volume 82.5 fL (80.0-100.0); Neutrophils % (auto) 87.9 % (37.0-80.0); Red Blood Cells 5.66 10^6/uL (4.0-5.20); White Blood Cell 9.8 10^3/uL (4.4-10.8)
[2021-04-01 14:50] LABS: Albumin 2.9 g/dL (3.4-5.0); Calcium 9.8 mg/dL (8.5-10.1)
[2021-04-01 14:55] LABS: BUN/Creatinine Ratio 27.5; Bilirubin, Total 0.4 mg/dL (0.2-1.0); Total Protein 6.9 g/dL (6.4-8.2)
[2021-04-01 14:58] LABS: Free T4 (Free Thyroxine) 1.2 ng/dL (0.89-1.76)
[2021-04-01 15:21] LABS: Potassium 2.9 mmol/L (3.5-5.1)
== END | disposition home or self-care (01) ==
LOC: LAB 14:20
PROVIDERS: ATTEND Internal Medicine
DX: E11.22 Type 2 diabetes mellitus with diabetic chronic kidney disease (principal); N18.4 Chronic kidney disease, stage 4 (severe); I50.32 Chronic diastolic (congestive) heart failure; E78.5 Hyperlipidemia, unspecified
CPT/HCPCS: 36415; 80053; 80061; 82607; 83036; 84439; 84443; 85025